=== PATIENT | male | born 1960 | race Two or more races ===

== ENCOUNTER 2023-03-10 20:00 | Emergency (ER) | payer OTHER ==
[~2023-03-10] VITALS: Ht 175.3 cm; Wt 95.3 kg
[2023-03-10] MEDS ORDERED: COZAAR25 MG (20:26)
[2023-03-10] MEDS ORDERED: METFORMIN HCL1000 M2 (20:26)
[2023-03-10] MEDS ORDERED: MOUNJARO2.5 MG/0.5 (20:26)
[2023-03-10] MEDS ORDERED: GLIPIZIDE XL10 MG (20:27)
[2023-03-10] MEDS ORDERED: DICLOFENAC SODI75 MG PO (22:33)
[2023-03-10] MEDS ORDERED: NORFLEX100MG PO (22:33)
== END 2023-03-10 23:04 | disposition home or self-care (01) ==
LOC: ER 20:00
DX: M54.6 Pain in thoracic spine (principal); E11.9 Type 2 diabetes mellitus without complications; Z79.4 Long term (current) use of insulin; I10 Essential (primary) hypertension